=== PATIENT | female | born 1950 | race Caucasian/White ===

== ENCOUNTER → 2016-07-26 | Outpatient (CLI) | payer OTHER | END | disposition disaster alternative care site (69) | LOC: GRAD 08:48 | DX: R10.11 Right upper quadrant pain (principal); K76.9 Liver disease, unspecified ==

== ENCOUNTER → 2016-08-30 | Outpatient (CLI) | payer OTHER | END | disposition disaster alternative care site (69) | LOC: GRAD 15:46 | DX: S49.92XA Unspecified injury of left shoulder and upper arm, initial encounter (principal); M75.120 Complete rotator cuff tear or rupture of unspecified shoulder, not specified as traumatic; W19.XXXA Unspecified fall, initial encounter ==